=== PATIENT | female | born 1950 | race Hispanic/Latino ===

== ENCOUNTER → 2017-09-28 | Outpatient (CLI) | payer OTHER, MEDICARE | END | disposition home or self-care (01) | LOC: RAH 09:14 | PROVIDERS: ATTEND Family Medicine | DX: Z12.31 Encounter for screening mammogram for malignant neoplasm of breast (principal) | CPT/HCPCS: 77067 ==

== ENCOUNTER 2018-06-24 09:35 | Emergency (ER) | payer OTHER, MEDICARE ==
[2018-06-24 10:11] LABS: BASOPHILS % (AUTO) 0.2 % (0.0-5.0); HEMATOCRIT 38.7 % (36-48); MEAN CORPUSCULAR HEMOGLOBIN 28.9 pg (27.0-33.0); MEAN CORPUSCULAR HGB CONC 32.9 g/dL (32.0-36.0); MEAN CORPUSCULAR VOLUME 87.8 fL (79-99); MONOCYTES % (AUTO) 5.5 % (3.0-13.0); NEUTROPHILS % (AUTO) 70.3 % (40.0-77.0); PLATELET COUNT (AUTO) 148 K/uL (130-400); RED CELL DISTRIBUTION WIDTH 13.8 % (11.0-15.5); WHITE BLOOD COUNT (AUTO) 5.4 K/uL (4.8-10.8)
[2018-06-24 10:18] LABS: CREATININE 0.5 mg/dL (0.5-1.5); POTASSIUM 3.7 mmol/L (3.5-5.1)
[2018-06-24 10:23] LABS: ALBUMIN 3.5 g/dL (3.5-5.0); BILIRUBIN,TOTAL 0.4 mg/dL (0.2-1.0); TOTAL PROTEIN, SERUM 7.2 g/dL (6.0-8.3)
[2018-06-24] MEDS ORDERED: CEFTRIAXONE SODIUM 1 GM ONE (10:27)
[2018-06-24] MEDS ORDERED: DEXAMETHASONE SOD PHOSPHATE 10MG/ML 1ML VIAL ONE (10:27)
[2018-06-24] MEDS ORDERED: SODIUM CHLORIDE 0.9% 100 ML IV ONE (10:27)
[2018-06-24] MEDS ORDERED: IPRATROPIUM/ALBUTEROL SULFATE 3 ML SOLUTION IH ONE (10:39)
[2018-06-24 10:47] LABS: B-TYPE NATRIURETIC PEPTIDE 41 pg/mL (0-100)
== END 2018-06-24 11:49 | disposition home or self-care (01) ==
LOC: EDH 09:35
DX: J20.9 Acute bronchitis, unspecified (principal); M19.90 Unspecified osteoarthritis, unspecified site; Z90.710 Acquired absence of both cervix and uterus
CPT/HCPCS: 36415; 71046; 80053; 82550; 83880; 84484; 85025; 87804 ×2; 93005; 94640; 94761; 96374; 96375; 99285; J0696; J1100

== ENCOUNTER → 2018-10-04 | Outpatient (CLI) | payer OTHER, MEDICARE | END | disposition home or self-care (01) | LOC: RAH 13:24 | PROVIDERS: ATTEND Family Medicine | DX: Z12.31 Encounter for screening mammogram for malignant neoplasm of breast (principal) | CPT/HCPCS: 77067 ==

== ENCOUNTER 2019-03-31 14:21 | Emergency (ER) | payer OTHER, MEDICARE | END 2019-03-31 14:48 | disposition home or self-care (01) | LOC: EDH 14:21 | DX: S80.811A Abrasion, right lower leg, initial encounter (principal); M19.90 Unspecified osteoarthritis, unspecified site; Z90.710 Acquired absence of both cervix and uterus; X58.XXXA Exposure to other specified factors, initial encounter; Y93.89 Activity, other specified; Y92.89 Other specified places as the place of occurrence of the external cause; Y99.8 Other external cause status ==

== ENCOUNTER 2019-04-01 10:44 | Emergency (ER) | payer OTHER, MEDICARE ==
[2019-04-01 11:32] LABS: BASOPHILS % (AUTO) 0.6 % (0.0-5.0); EOSINOPHILS % (AUTO) 1.8 % (0.0-8.0); HEMATOCRIT 38.3 % (36-48); LYMPHOCYTES % (AUTO) 19.7 % (21.0-51.0); MEAN CORPUSCULAR HEMOGLOBIN 28.8 pg (27.0-33.0); MEAN CORPUSCULAR HGB CONC 32.8 g/dL (32.0-36.0); MEAN CORPUSCULAR VOLUME 87.7 fL (79-99); MONOCYTES % (AUTO) 5.6 % (3.0-13.0); NEUTROPHILS % (AUTO) 72.3 % (40.0-77.0); PLATELET COUNT (AUTO) 145 K/uL (130-400); RED BLOOD CELL COUNT(AUTO) 4.36 MIL/uL (4.00-5.50); RED CELL DISTRIBUTION WIDTH 14.3 % (11.0-15.5); WHITE BLOOD COUNT (AUTO) 5.8 K/uL (4.8-10.8)
[2019-04-01 11:39] LABS: CREATININE 0.5 mg/dL (0.5-1.5); POTASSIUM 3.3 mmol/L (3.5-5.1)
[2019-04-01 11:40] LABS: INR 0.98 (0.85-1.15); PROTHROMBIN TIME 10.3 SEC (9.6-11.6)
[2019-04-01 11:45] LABS: ALBUMIN 3.1 g/dL (3.5-5.0); BILIRUBIN,TOTAL 0.6 mg/dL (0.2-1.0); TOTAL PROTEIN, SERUM 6.3 g/dL (6.0-8.3)
[2019-04-01 11:57] LABS: B-TYPE NATRIURETIC PEPTIDE 60 pg/mL (0-100)
[2019-04-01 12:13] LABS: PARTIAL THROMBOPLASTIN TIME 26.7 SEC (26.3-35.5)
[2019-04-01] MEDS ORDERED: ASPIRIN 325 MG TABLET ONE (12:41)
[2019-04-01] MEDS ORDERED: NITROGLYCERIN 1GM/1 INCH PACKET TD ONE (13:11)
[2019-04-01 13:18] LABS: APPEARANCE,URINE Cloudy (CLEAR); BILIRUBIN,URINE Negative (NEGATIVE); COLOR,URINE Yellow (YELLOW); GLUCOSE, URINE (UA) Negative (NEGATIVE); KETONES,URINE Negative (NEGATIVE); LEUKOCYTE ESTERASE ,URINE Large (NEGATIVE); NITRATE,URINE Negative (NEGATIVE); OCCULT BLOOD,URINE Negative (NEGATIVE); PROTEIN,URINE Negative (NEGATIVE)
[2019-04-01 13:32] LABS: BACTERIA,URINE Few /HPF (None Seen); MUCUS,URINE Few LPF (None Seen); RBC,URINE None Seen /HPF (0-1); SQUAMOUS EPITHELIAL CELL,UR Moderate /HPF (0-2)
== END 2019-04-01 14:33 | disposition home or self-care (01) ==
LOC: EDH 10:44
DX: I10 Essential (primary) hypertension (principal); R07.89 Other chest pain; M19.90 Unspecified osteoarthritis, unspecified site; Z90.710 Acquired absence of both cervix and uterus; Z98.890 Other specified postprocedural states; Z87.891 Personal history of nicotine dependence
CPT/HCPCS: 36415; 71045; 80053; 81001; 82150; 82550; 83690; 83880; 84484; 85025; 85610; 85730; 93005

== ENCOUNTER → 2019-05-25 | Outpatient (CLI) | payer OTHER | END | disposition home or self-care (01) | LOC: OIH 10:14 | PROVIDERS: ATTEND Internal Medicine Cardiovascular Disease | DX: Z13.6 Encounter for screening for cardiovascular disorders (principal) | CPT/HCPCS: 75571 ==

== ENCOUNTER → 2019-06-04 | Outpatient (CLI) | payer OTHER, MEDICARE | END | disposition home or self-care (01) | LOC: SHCH 10:44 | PROVIDERS: ATTEND Internal Medicine Cardiovascular Disease | DX: I11.9 Hypertensive heart disease without heart failure (principal) | CPT/HCPCS: 93306 ==

== ENCOUNTER → 2019-06-07 | Outpatient (CLI) | payer OTHER, MEDICARE ==
[~2019-06-07] MED LIST: REGADENOSON 0.4 MG/5 ML PF SYG IVP SCH
== END | disposition home or self-care (01) ==
LOC: SHCH 08:40
PROVIDERS: ATTEND Internal Medicine Cardiovascular Disease
DX: I10 Essential (primary) hypertension (principal)
CPT/HCPCS: 78452; 93017; 96374; A9500 ×2; J2785

== ENCOUNTER → 2019-10-15 | Outpatient (CLI) | payer OTHER, MEDICARE | END | disposition home or self-care (01) | LOC: RAH 12:43 | PROVIDERS: ATTEND Family Medicine | DX: Z12.31 Encounter for screening mammogram for malignant neoplasm of breast (principal) | CPT/HCPCS: 77067 ==

== ENCOUNTER → 2020-12-12 | Outpatient (CLI) | payer OTHER, MEDICARE | END | disposition home or self-care (01) | LOC: RAH 14:56 | PROVIDERS: ATTEND Family Medicine | DX: Z12.31 Encounter for screening mammogram for malignant neoplasm of breast (principal) | CPT/HCPCS: 77067 ==

== ENCOUNTER → 2021-12-22 | Outpatient (CLI) | payer OTHER | END | disposition home or self-care (01) | LOC: RAH 08:40 | PROVIDERS: ATTEND Family Medicine | DX: Z12.31 Encounter for screening mammogram for malignant neoplasm of breast (principal) | CPT/HCPCS: 77067 ==

== ENCOUNTER → 2023-01-10 | Outpatient (CLI) | payer OTHER, MEDICARE | END | disposition home or self-care (01) | LOC: RAH 14:05 | PROVIDERS: ATTEND Family Medicine | DX: Z12.31 Encounter for screening mammogram for malignant neoplasm of breast (principal) | CPT/HCPCS: 77067 ==

== ENCOUNTER → 2023-12-29 | Outpatient (CLI) | payer OTHER, MEDICARE | END | disposition home or self-care (01) | LOC: SHCH 10:00 | PROVIDERS: ATTEND Internal Medicine Cardiovascular Disease | DX: I51.89 Other ill-defined heart diseases (principal); I25.10 Atherosclerotic heart disease of native coronary artery without angina pectoris; E78.5 Hyperlipidemia, unspecified | CPT/HCPCS: 93306; 93880 ==

== ENCOUNTER → 2023-12-29 | Outpatient (CLI) | payer OTHER, MEDICARE | END | disposition home or self-care (01) | LOC: SHCH 08:14 | PROVIDERS: ATTEND Internal Medicine Cardiovascular Disease | DX: I25.10 Atherosclerotic heart disease of native coronary artery without angina pectoris (principal); I10 Essential (primary) hypertension; E78.5 Hyperlipidemia, unspecified; R53.83 Other fatigue; R07.9 Chest pain, unspecified; Z79.899 Other long term (current) drug therapy | CPT/HCPCS: 93880 ==

== ENCOUNTER → 2024-01-06 | Outpatient (CLI) | payer OTHER, MEDICARE ==
[2024-01-06] MEDS: REGADENOSON 0.4 MG/5 ML PF SYG IVP ONE (13:54)
== END | disposition home or self-care (01) ==
LOC: SHCH 08:06
PROVIDERS: ATTEND Internal Medicine Cardiovascular Disease
DX: I25.10 Atherosclerotic heart disease of native coronary artery without angina pectoris (principal); I10 Essential (primary) hypertension
CPT/HCPCS: 78452; 93017; J2785; A9500 ×2; 96374

== ENCOUNTER 2025-03-11 10:15 | Emergency (ER) | payer OTHER, MEDICARE ==
[~2025-03-11] VITALS: Ht 137.2 cm; Wt 69.9 kg
[2025-03-11] MEDS: acetaMINOPHEN 325 MG TAB PO STA (10:51)
--- NOTE | 2025-03-11 12:15 | HMCIMG ---
CT HEAD/BRAIN W/O CONTRAST HISTORY: Status post fall COMPARISON: None TECHNIQUE: Multiple sequential axial images of the head were obtained from the base of the skull through vertex. Patient was not given contrast through intravenous route. FINDINGS: The ventricles and extraventricular CSF spaces are nondilated for patient's age. There is no midline shift, mass effect or herniation. No acute intracranial bleed is seen. There are bilateral sphenoid sinusitis with mucoperiosteal thickening. IMPRESSION: 1. No acute intracranial bleed is seen. 2. Atrophy with white matter changes. CT was performed with one or more following dose reduction techniques: automated exposure control, adjustment of the mA and kv according to patient's size, or use of a iterative reconstruction technique.
--- NOTE | 2025-03-11 12:35 | HMCIMG ---
CT CERVICAL SPINE W/O CONTRAST HISTORY: Status post fall COMPARISON: None TECHNIQUE: Multiple sequential axial images of the cervical spine were obtained including post processing sagittal and coronal reconstruction images. Patient was not given contrast through intravenous route. FINDINGS: Degenerative changes of the cervical spine are noted with cervical spine spondylosis. Disc space narrowing is seen at the C5-6 level. There is straightening of normal lordotic cervical curvature which may be related to muscle spasm or positioning. There is no loss of vertebral height. Evaluation for disc and cord pathology is limited with CT study. No evidence of fracture or dislocation is seen. IMPRESSION: 1. No fracture is seen. DJD. CT was performed with one or more following dose reduction techniques: automated exposure control, adjustment of the mA and kv according to patient's size, or use of a iterative reconstruction technique.
--- NOTE | 2025-03-11 12:58 | ERN ---
ED Note History of Present Illness Stated Complaint: HEAD INJURY, FALL Chief Complaint: Mechanical Fall Time Seen by MD: 10:17 Time Seen by Midlevel: 10:20 Dictation: 74-year-old female coming in status post ground level fall. Patient states she tripped with her sandal fell back hitting her head on the concrete denies any LOC, denies any blood thinners. At this time he is complaining of a headache, right shoulder pain and right leg pain Allergies: Coded Allergies: No Known Allergies (Unverified Allergy, Unknown, 06/05/19) Past Medical History Past Medical History: High Cholesterol, Hypertension Surgical History: Hysterectomy Surgical History Other: BACK Review of System Dictation Constitutional: Negative for fever,chills, and weight loss Eyes: Negative for injury, pain,redness, and discharge ENT: Negative for injury,pain or swelling Cardiovascular: Negative for chest pain, palpitations, and edema Respiratory: Negative for shortness of breath, cough, and wheezing, Abdomen/GI: Negative for abdominal pain, nausea, vomiting, diarrhea, and constipation Back: Negative for injury and pain : Negative for injury, bleeding and discharge MS/Extremity: Negative for injury and deformity, complaining of right shoulder and right leg pain Skin: Negative for rash, and discoloration Neuro: Complaining of a headache, no weakness, no numbness, no tingling, and no seizure Psych: Negative for suicide ideation, homicidal ideation, and hallucinations Review of Systems: was completed Initial Vital Sign VS Vital Signs Date Time Temp Pulse Resp B/P (MAP) Pulse Ox O2 Delivery O2 Flow Rate FiO2 03/11/25 10:16 97.9 68 16 164/72 99 Room Air 0 03/11/25 10:33 21 Physical Exam Dictation General: awake, alert, NAD Head/Face: Normocephalic, atraumatic Eyes: PERRL, EOMI, vision at baseline ENT: oral cavity clear, TMs clear, no signs of infection Neck: Trachea midline, supple, no nuchal rigidity Cardiovascular: RRR, normal S1/S2, No MRGs, no JVD Respiratory: CTAB, no respiratory distress, No rales or wheezes Abdomen: Soft, non-tender, non-distended, normal bowel sounds, no guarding or rebound. Skin: Warm, dry, normal turgor, no rash MS/Extremity: Pulses equal, no cyanosis, neurovascular intact, FROM Neuro: COAx4, GCS 15, strength 5/5, CN 2-12 intact, normal cerebellar exam, normal gait, Psych: Normal behavior, mood, and affect normal Results (Laboratory/Radiology) CT Scan Comment: [facility] [address] [place] [address] [id number] IMAGING REPORT Signed PATIENT: SUSY HORNE MR#: [id number] : 1950 SEX: F AGE: 74 LOCATION: [facility] ORDER 1042 STATUS: REG ER REPORT#: [id number] SERVICE 1038 REASON: fall ORDERING PHYSICIAN: ARTUR RIVAS NP PROCEDURE: HEAD WO - CT HEAD/BRAIN W/O CONTRAST CT HEAD/BRAIN W/O CONTRAST HISTORY: Status post fall COMPARISON: None TECHNIQUE: Multiple sequential axial images of the head were obtained from the base of the skull through vertex. Patient was not given contrast through intravenous route. FINDINGS: The ventricles and extraventricular CSF spaces are nondilated for patient's age. There is no midline shift, mass effect or herniation. No acute intracranial bleed is seen. There are bilateral sphenoid sinusitis with mucoperiosteal thickening. IMPRESSION: 1. No acute intracranial bleed is seen. 2. Atrophy with white matter changes. CT was performed with one or more following dose reduction techniques: automated exposure control, adjustment of the mA and kv according to patient's size, or use of a iterative reconstruction technique. DICTATED BY: CHINA SCOTT MD DATE: 03/11/251211 ELECTRONICALLY SIGNED BY: CHINA SCOTT MD DATE: 03/11/25 1216 [facility] [address] [id number] IMAGING REPORT Signed PATIENT: SUSY HORNE MR#: [id number] : 1950 SEX: F AGE: 74 LOCATION: [facility] ORDER 1042 STATUS: REG ER HOSPITAL REPORT#: [id number] SERVICE 1038 REASON: fall ORDERING PHYSICIAN: ARTUR RIVAS NP PROCEDURE: C SPIN WO - CT CERVICAL SPINE W/O CONTRAST CT CERVICAL SPINE W/O CONTRAST HISTORY: Status post fall COMPARISON: None TECHNIQUE: Multiple sequential axial images of the cervical spine were obtained including post processing sagittal and coronal reconstruction images. Patient was not given contrast through intravenous route. FINDINGS: Degenerative changes of the cervical spine are noted with cervical spine spondylosis. Disc space narrowing is seen at the C5-6 level. There is straightening of normal lordotic cervical curvature which may be related to muscle spasm or positioning. There is no loss of vertebral height. Evaluation for disc and cord pathology is limited with CT study. No evidence of fracture or dislocation is seen. IMPRESSION: 1. No fracture is seen. DJD. CT was performed with one or more following dose reduction techniques: automated exposure control, adjustment of the mA and kv according to patient's size, or use of a iterative reconstruction technique. DICTATED BY: CHINA SCOTT MD DATE: 03/11/25 1219 ELECTRONICALLY SIGNED BY: CHINA SCOTT MD DATE: 03/11/25 1235 ED Course ED Course Orders Procedure Category Date Status Time Ct Head/Brain W/O CT 03/11/25 Resulted Contrast 10:38 Ct Cervical Spine W/O CT 03/11/25 Resulted Contrast 10:38 Shoulder Comp 2+Vws Rt RAD 03/11/25 Taken 10:38 Acetaminophen 325 Tab PHA 03/11/25 Complete (Tylenol 325mg Tab 10:41 Pelvis 1-2vws RAD 03/11/25 Taken 12:53 Current Medications Medications (Trade) Dose Ordered Sig/Ovi Route PRN Reason Start Time Stop Time Status Last Admin Dose Admin Acetaminophen (TYLenol 325MG TAB) 650 mg ONCE STAT PO 03/11/25 10:41 03/11/25 10:44 DC 03/11/25 10:51 Vital Signs Date Time Temp Pulse Resp B/P (MAP) Pulse Ox O2 Delivery O2 Flow Rate FiO2 03/11/25 13:04 97.9 65 16 192/66 97 Room Air* 0 03/11/25 12:04 97.9 66 16 177/68 99 Room Air* 0 03/11/25 10:33 97.9 68 16 164/72 99 Room Air* 0 03/11/25 10:16 97.9 68 16 164/72 99 Room Air 0 Medical Decision Making MDM MDM: 74-year-old female coming in status post ground level fall. Patient states she tripped with her sandal fell back hitting her head on the concrete denies any LOC, denies any blood thinners. At this time he is complaining of a headache, right shoulder pain and right leg pain. CT of the head shows no acute finding. An CT of the C-spine shows no new findings only degenerative findings. He has a shoulder and hip within normal range interpreted by ER MD. discussed findings with the patient. Educated patient on red flag symptoms to return back to the ER like severe headache, nausea vomiting, altered mental status. Patient verbalized understanding, answered all questions. Differential diagnosis: STDs, ICH, head contusion, shoulder dislocation hip fracture Rationale: Tests considered and ordered secondary to shared decision making include: Previous outside records reviewed: Old ER visits. Risk of complication and/or morbidity or mortality of patient management: None Medications-Per medication reconciliation Need for hospitalization: Patient does not meet criteria for hospitalization. Need for emergency major/minor surgery: No There are no social concerns with this patient. Prescription drug management Prescriptions will include symptomatic care Patient's prior external medical records from other ER visits were reviewed by me as indicated. Prior testing and results from previous visits were reviewed. Prior tests were taken into account with medical decision making and resource utilization, independent historian/historians were used to obtain complete medical history. I independently interpreted the test that were performed, results were reviewed by me and considered findings on radiology if ordered. Medical management and examination interpretation discussions were had by me with other qualified healthcare professionals as indicated for the patient's care. DX & DISP Disposition: Discharge Departure Impression: Primary Impression: Fall Additional Impressions: Head contusion, Shoulder contusion Condition: Stable Additional Instructions: vidal tylenol o motrin para el dolor. seguir con jenkins doctor familiar en 1-2 riggs. regrese a la emergencia si tiene nasea, vomito , o dolor de jeramy breonna. Referrals: GURWINDER CHIN (PCP) Time of Disposition: 13:12 I have reviewed the case, and I agree with, Diagnosis and Plan ARTUR RIVAS NP Mar 11, 2025 12:57
--- NOTE | 2025-03-11 13:22 | HMCIMG ---
PELVIS 1-2VWS HISTORY: Status post fall COMPARISON: None TECHNIQUE: Frontal projection of the pelvis was obtained. FINDINGS: There is no acute displaced fracture or dislocation. Bilateral hip joint space narrowing is seen. Degenerative changes are seen. IMPRESSION: 1. Findings as described above.
[2025-03-11] MEDS: cloNIDine HCL 0.1 MG TABLET PO STA (13:30)
--- NOTE | 2025-03-11 13:42 | HMCIMG ---
SHOULDER COMP 2+VWS RT HISTORY: Status post fall COMPARISON: None TECHNIQUE: 2 images of the right shoulder were obtained. FINDINGS: There is no acute displaced fracture or dislocation. Degenerative changes are seen. IMPRESSION: 1. Findings as described above.
[2025-03-11 13:59] VITALS: BP 150/68; PULSE 67; RESP 17; TEMP 97.8; O2SAT 99
== END 2025-03-11 14:00 | disposition home or self-care (01) ==
LOC: EDH 10:15
DX: S00.93XA Contusion of unspecified part of head, initial encounter (principal); S40.011A Contusion of right shoulder, initial encounter; E78.00 Pure hypercholesterolemia, unspecified; I10 Essential (primary) hypertension; Z90.710 Acquired absence of both cervix and uterus; W01.0XXA Fall on same level from slipping, tripping and stumbling without subsequent striking against object, initial encounter; Y93.89 Activity, other specified; Y92.89 Other specified places as the place of occurrence of the external cause; Y99.8 Other external cause status
CPT/HCPCS: 70450; 72125; 72170; 73030; 99285

== ENCOUNTER 2025-04-06 16:26 | Emergency (ER) | payer OTHER, MEDICAID ==
[~2025-04-06] VITALS: Ht 134.6 cm; Wt 69.9 kg
[2025-04-06 16:29] VITALS: BP 172/69; PULSE 73; RESP 18; TEMP 98.4
[2025-04-06] MEDS: ORPHENADRINE 60MG/2ML IM SCH (17:49)
--- NOTE | 2025-04-06 18:50 | HMCIMG ---
EXAM: CR Lumbar Spine, 3 View. CLINICAL HISTORY: back pain COMPARISON: None provided. FINDINGS: BONES: No acute fracture or aggressive appearing osseous lesion. ALIGNMENT: Alignment is within normal limits. No significant scoliosis. DISCS / DEGENERATIVE CHANGES: Anterior osteophytes, and syndesmophytes at multiple levels. Mild to moderate disc disease at L5-S1, and mild disc disease at L4-L5. Mild grade 1 anterior listhesis of L4 with respect L5 related to facet joint osteoarthritis. Pain stimulator with leads noted. SOFT TISSUES: The soft tissues are unremarkable. IMPRESSION: 1. No acute osseous injury. 2. Spinal stimulator in place. /[place]
[2025-04-06] MEDS ORDERED: LIDO1ADH71 TP (19:00)
[2025-04-06] MEDS ORDERED: CYCL5TAB3 PO (19:00)
--- NOTE | 2025-04-06 19:00 | ERN ---
ED Note History of Present Illness Stated Complaint: LOWER BACK PAIN Chief Complaint: Low Back Pain/Injury Time Seen by MD: 16:28 Time Seen by Midlevel: 16:28 Dictation: The Patient is a 74-year-old female with a history of hyperlipidemia, hypertension who presents to the emergency department with complaints of lower back pain onset today after she bent down to leaf size picker something. Patient reports she has been having problems with her back since she had a fall last month. Patient denies any recent falls or trauma. Denies any urinary or fecal incontinence. Patient denies any numbness or tingling to lower extremities. Allergies: Coded Allergies: No Known Allergies (Unverified Allergy, Unknown, 06/05/19) Past Medical History Past Medical History: Depression, High Cholesterol, Hypertension Surgical History: Hysterectomy, Surgical History Other: BACK SX RN Note Reviewed/Agreed w/PFSH: Yes Review of System Dictation Constitutional: Negative for fever,chills, and weight loss Eyes: Negative for injury, pain,redness, and discharge ENT: Negative for injury,pain or swelling Cardiovascular: Negative for chest pain, palpitations, and edema Respiratory: Negative for shortness of breath, cough, and wheezing, Abdomen/GI: Negative for abdominal pain, nausea, vomiting, diarrhea, and constipation Back: Positive for low back pain : Negative for injury, bleeding and discharge MS/Extremity: Negative for injury and deformity Skin: Negative for rash, and discoloration Neuro: Negative for headache, weakness, numbness, tingling, and seizure Psych: Negative for suicide ideation, homicidal ideation, and hallucinations Initial Vital Sign VS Vital Signs Date Time Temp Pulse Resp B/P (MAP) Pulse Ox O2 Delivery O2 Flow Rate FiO2 04/06/25 16:29 98.4 73 18 172/69 97 Room Air 0 Physical Exam Dictation Vital Signs reviewed General Appearance: Alert, oriented x 3, no acute distress, well developed, nourished. Head and Face: non-traumatic. Eyes: PERRL, pink conjunctivas, eyelid no trauma, anterior chamber with arcus senilis. Ears: Pinnas intact and no signs of trauma or erythema ear canals clear and no discharge TM no erythema Nose: No discharge, no bleeding. Oropharynx: Mouth normal, tongue pink. pharynx clear,no erythema, tonsils no exudates, no abscesses noted, mucous membrane moist Neck: Supple, non-tender, no thyromegaly, no masses, no JVD, no bruits Breast:Deferred Chest:No tenderness, no crepitus, no paradoxical movement, no retractions Lungs:Clear, well-ventilated, symmetric, no rales, no wheezing, no rhonchi, no stridor, good breath sounds bilaterally Heart: Regular rate, regular rhythm, no murmur, no gallops Vascular: no peripheral edema, dorsalis pedis 3+ bilaterally, cap refill less than 2 seconds to bilateral feet Abdomen: Soft, positive bowel sounds, nondistended, no guarding, nontender, no rebound, no masses no hepatomegaly, no splenomegaly, no Sarmiento's sign, no hernias. Rectal: Deferred Genital: Deferred Neurological: Normal speech, motor function intact, sensory function intact Musculoskeletal: Neck nontender, full range of motion, full range of motion, tenderness to mid lower back and right buttocks. Extremities: nontender, full range of motion Skin: Color pink, dry, no turgor, no rash, no lacerations, no abrasions, no contusions. Lymphatic: Deferred Results (Laboratory/Radiology) Laboratory/Radiology REASON: back pain ORDERING PHYSICIAN: DAJA DOWELL EQUIPMENT VALIDATION ENGINEER PROCEDURE: LUMB 2 3VW - LUMBAR SPINE 2-3VWS EXAM: CR Lumbar Spine, 3 View. CLINICAL HISTORY: back pain COMPARISON: None provided. FINDINGS: BONES: No acute fracture or aggressive appearing osseous lesion. ALIGNMENT: Alignment is within normal limits. No significant scoliosis. DISCS / DEGENERATIVE CHANGES: Anterior osteophytes, and syndesmophytes at multiple levels. Mild to moderate disc disease at L5-S1, and mild disc disease at L4-L5. Mild grade 1 anterior listhesis of L4 with respect L5 related to facet joint osteoarthritis. Pain stimulator with leads noted. SOFT TISSUES: The soft tissues are unremarkable. IMPRESSION: 1. No acute osseous injury. 2. Spinal stimulator in place. /[facility] Reviewed?: Yes ED Course ED Course Orders Procedure Category Date Status Time Lumbar Spine 2-3vws RAD 04/06/25 Resulted 17:14 Orphenadrine Citrate PHA 04/06/25 In Process (Norflex) 17:30 Ketorolac 60mg/2ml PHA 04/06/25 In Process (Toradol 60mg/2ml) 17:30 Current Medications Medications (Trade) Dose Ordered Sig/Ovi Route PRN Reason Start Time Stop Time Status Last Admin Dose Admin Ketorolac Tromethamine (toRADol 60MG/ 2ML) 30 mg ONCE IM 04/06/25 17:30 04/06/25 23:59 04/06/25 17:49 Orphenadrine Citrate (Norflex) 60 mg ONCE IM 04/06/25 17:30 04/06/25 23:59 04/06/25 17:49 Vital Signs Date Time Temp Pulse Resp B/P (MAP) Pulse Ox O2 Delivery O2 Flow Rate FiO2 04/06/25 16:29 98.4 73 18 172/69 97 Room Air 0 Medical Decision Making MDM The Patient is a 74-year-old female with a history of hyperlipidemia, hypertension who presents to the emergency department with complaints of lower back pain onset today after she bent down to leaf size picker something. Patient reports she has been having problems with her back since she had a fall last month. Patient denies any recent falls or trauma. Denies any urinary or fecal incontinence. Patient denies any numbness or tingling to lower extremities. Lumbar x-ray showed no acute fractures or dislocations. Some osteoarthritis. Patient reports improving in pain with medication administration. On physical exam patient is in no acute distress, neurovascularly intact. Patient is ambulatory. No saddle anesthesia. Imaging discussed with the patient who agrees to be discharged and follow up with PCP. Differential diagnosis: Lumbar strain, sciatic nerve pain, lumbar fracture Need for hospitalization: Patient does not meet criteria for hospitalization. There are no social concerns with this patient. DX & DISP Disposition: Discharge Departure Impression: Primary Impression: Lumbar strain Condition: Stable Scripts Lidocaine (Lidocaine Pain Relief) 4 % Adh..patch 1 PATCH TP DAILY for 10 Days, #10 PATCH 0 Refills Prov: DAJA DOWELL 04/06/25 Cyclobenzaprine HCl (Cyclobenzaprine HCl) 5 Mg Tablet 1 TAB PO TIDP PRN for muscle spasms for 10 Days, #30 TAB 0 Refills Prov: DAJA DOWELL EQUIPMENT VALIDATION ENGINEER 04/06/25 Additional Instructions: Please take your medications as prescribed. Please follow up with the primary doctor in 1-2 days. If symptoms worsen please return to ER. FOLLOW-UP WITH PRIMARY CARE PROVIDER IN 1 TO 2 DAYS. TAKE MEDICATIONS DIRECTED HERE IN THE EMERGENCY ROOM. OKAY TO CONTINUE HOME MEDICATIONS UNLESS OTHERWISE DISCUSSED DURING YOUR VISIT IN THE EMERGENCY ROOM TODAY. RETURN TO YOUR NEAREST EMERGENCY ROOM IF SYMPTOMS WORSEN OR IF THERE IS NO IMPROVEMENT. CALL 911 IF YOU NEED IMMEDIATE ASSISTANCE. TAKE TYLENOL [id number] NEEDED AND IF NO CONTRAINDICATIONS ARE PRESENT. INCREASE ORAL HYDRATION. A WOUND CULTURE OR URINE CULTURE WAS ORDERED HERE IN THE EMERGENCY ROOM DEPARTMENT PLEASE FOLLOW-UP WITH PRIMARY CARE PROVIDER AND ADVISE THEM TO GET REPEAT PORTS FROM OUR FACILITY. IF YOU HAD ANY JAIRO WRAP/SPLINTS THAT WERE APPLIED HERE, PL EASE DO NOT REMOVE THEM UNTIL YOU SEE YOUR PRIMARY CARE OR SPECIALTY. Referrals: GURWINDER CHIN (PCP) Time of Disposition: 18:58 I have reviewed the case, and I agree with, Diagnosis and Plan DAJA DOWELL EQUIPMENT VALIDATION ENGINEER Apr 06, 2025 19:00
== END 2025-04-06 19:28 | disposition home or self-care (01) ==
LOC: EDH 16:26
DX: S39.012A Strain of muscle, fascia and tendon of lower back, initial encounter (principal); E78.00 Pure hypercholesterolemia, unspecified; I10 Essential (primary) hypertension; F32.A Depression, unspecified; Z90.710 Acquired absence of both cervix and uterus; Z98.890 Other specified postprocedural states; W18.39XA Other fall on same level, initial encounter; Y93.89 Activity, other specified; Y92.89 Other specified places as the place of occurrence of the external cause; Y99.8 Other external cause status
CPT/HCPCS: 99284; 72100; 96372 ×2; J1885; J2360

== ENCOUNTER → 2025-04-30 | Outpatient (CLI) | payer OTHER, MEDICAID ==
[~2025-04-30] MED LIST changes: +CYCL5TAB3 PO; +LIDO1ADH71 TP; -REGADENOSON 0.4 MG/5 ML PF SYG IVP SCH
== END | disposition home or self-care (01) ==
LOC: RAH 07:55
PROVIDERS: ATTEND Family Medicine
DX: Z12.31 Encounter for screening mammogram for malignant neoplasm of breast (principal)
CPT/HCPCS: 77067